=== PATIENT | male | born 1945 | race Caucasian/White ===

== ENCOUNTER 2021-10-03 14:29 | Emergency (ER) | payer MEDICARE, SELFPAY ==
[2021-10-03] VITALS (34 sets, daily range): BP systolic 127–182; BP diastolic 62–108; PULSE 72–108; RESP 11–25; TEMP 37–37.2; O2SAT 94–100
--- NOTE | ~2021-10-03 | CT_ITS ---
EXAMINATION: CT abdomen pelvis wo con DATE: 10/03/2021 20:32 INDICATION: Fever, lactic acidosis, history of hepatic and gallbladder malignancy. TECHNIQUE: Computed tomography (CT) of the abdomen and pelvis was performed without intravenous contr ast. The dose-length product (DLP) was 838.11 mGy-cm. Automated exposure control and iterative recons truction technique were employed. COMPARISON: None FINDINGS: Minimal dependent atelectasis is present in the lung bases. The heart size is normal. A sto ne is present in the nondistended gallbladder. There is branching hyperattenuating material in the ri ght hepatic lobe. There is a biliary stent in the common bile duct extending into the left hepatic lo be. There is a possible low-attenuation mass of the right hepatic lobe abutting the gallbladder fossa . The spleen, pancreas, and adrenal glands are normal. There is a 2.1 cm soft tissue mass projecting at the caudal tip of the spleen, possibly a splenule. There is a 2 cm cyst of the right kidney. There is a 5.0 x 4.3 cm soft tissue density mass of the right retroperitoneum abutting or arising from the right kidney. There is a 1.6 cm exophytic lesion of the left kidney lower pole. The urinary bladder is moderately dilated. Streak artifact from hip arthroplasties obscures visualization of the pelvis. A bowel surgical anastomosis is noted in the right lower quadrant. There is severe lumbar spondylosis . There is calcified atherosclerosis of the aorta and many of the other arteries. IMPRESSION: 1. No definite cause of fever or lactic acidosis identified. 2. Right retroperitoneal mass abutting or arising from the right kidney, consistent with metastatic d isease or renal neoplasm, respectively. 3. Branching hyperattenuating material of the right hepatic lobe, possibly retained biliary contrast due to central hepatic tumor. 4. Indeterminate exophytic lesion of the left kidney lower pole, consistent with complicated cyst itzel pauline neoplasm. 5. Cholelithiasis. 6. Distention of the urinary bladder. Reviewed, dictated and finalized at location F. IMPRESSION: 1. No definite cause of fever or lactic acidosis identified. 2. Right retroperitoneal mass abutting or arising from the right kidney, consis tent with metastatic disease or renal neoplasm, respectively. 3. Branching hyperattenuating material of the right hepatic lobe, possibly sagar ined biliary contrast due to central hepatic tumor. 4. Indeterminate exophytic lesion of the left kidney lower pole, consistent wit h complicated cyst versus neoplasm. 5. Cholelithiasis. 6. Distention of the urinary bladder.
--- NOTE | ~2021-10-03 | XR_ITS ---
EXAMINATION: XR chest 1V portable INDICATION: Fever TECHNIQUE: Portable AP chest at 1729 hours COMPARISON: 11/04/2017 FINDINGS: The lungs are free of acute opacities. There is no pleural effusion or pneumothorax. A righ t internal jugular Port-A-Cath ends with its tip in the distal superior vena cava. The cardiomediasti nal silhouette is normal. There is branching hyperdense material in the right upper quadrant. IMPRESSION: 1. No acute cardiopulmonary abnormality. 2. Branching hyperattenuating material in the right upper quadrant may reflect contrast in the biliar y tree from prior intervention. Reviewed, dictated and finalized at location F. IMPRESSION: 1. No acute cardiopulmonary abnormality. 2. Branching hyperattenuating material in the right upper quadrant may reflect contrast in the biliary tree from prior intervention.
--- NOTE | 2021-10-03 17:16 | ED.FEVER ---
HPI - Fever General Chief Complaint: Fever <JUANPABLO Orozco Last Filed: 10/05/21 17:07> Stated Complaint: fever <JUANPABLO Orozco Last Filed: 10/05/21 17:07> Time Seen by Provider: 10/03/21 17:00 <JUANPABLO Orozco Last Filed: 10/05/21 17:07> Source: patient and family <JUANPABLO Orozco Last Filed: 10/05/21 17:07> Mode of arrival: ambulatory <JUANPABLO Orozco Last Filed: 10/05/21 17:07> Limitations: no limitations <JUANPABLO Orozco Last Filed: 10/05/21 17:07> History of Present Illness HPI Narrative: This is a 76-year-old male that presents to the emergency department for fever and chills. Reports earlier today he started to feel chills, they took his temperature and it was 100.3. This resolved without any intervention. He has no other localizing symptoms. He is currently undergoing chemotherapy for history of liver and gallbladder cancer at [facility] with Dr. Caballero. He called his oncologist who prompted him to be seen for further evaluation of his fever. Reports generalized weakness, which has been ongoing since he has been undergoing chemotherapy. Denies sore throat, cough, abdominal pain, vomiting, or dysuria. <Gege Ontiveros PA-C - Last Filed: 10/05/21 17:07> Related Data Home Medications: Home Medications Medication Instructions Recorded Confirmed amlodipine 10 mg tablet 1 tablet 10/03/21 atorvastatin 40 mg tablet tablet 10/03/21 doxazosin 4 mg tablet tablet 10/03/21 febuxostat 80 mg tablet tablet 10/03/21 losartan 100 mg tablet tablet 10/03/21 metoprolol succinate 100 mg tablet PO 10/03/21 tablet,extended release 24 hr sertraline 50 mg tablet 50 tablet PO HS 10/03/21 <JUANPABLO Orozco Last Filed: 10/05/21 17:07> Allergies/Adverse Reactions: Allergies Allergy/AdvReac Type Severity Reaction Status Date / Time allopurinol Allergy Unknown Sweating Verified 11/04/17 17:56 azithromycin Allergy Unknown Rash Verified 11/04/17 17:56 Penicillins Allergy Unknown Rash Verified 11/04/17 17:56 <Gege Ontiveros PA-C - Last Filed: 10/05/21 17:07> Review of Systems Review of Systems: CONSTITUTIONAL: Reports fever, chills CARDIOVASCULAR: Denies chest pain, or edema. RESPIRATORY: Denies cough GASTROINTESTINAL: Denies abdominal pain, nausea, vomiting GENITOURINARY: Denies dysuria NEUROLOGIC: Reports generalized weakness. <Gege Ontiveros PA-C - Last Filed: 10/05/21 17:07> All systems reviewed & are unremarkable except as noted in HPI and below <Gege Ontiveros PA-C - Last Filed: 10/05/21 17:07> [facility] Past Medical History Medical History: Medical History (Updated 10/04/21 @ 00:57 by Gege Ontiveros PA-C) History of coronary artery disease History of hyperlipidemia History of hypertension <Gege Ontiveros PA-C - Last Filed: 10/05/21 17:07> Surgical History Surgical History: Surgical History (Updated 10/03/21 @ 17:19 by Gege Ontiveros PA-C) History of appendectomy History of hernia repair <Gege Ontiveros PA-C - Last Filed: 10/05/21 17:07> Social History Social History: Social History (Updated 10/03/21 @ 17:19 by Gege Ontiveros PA-C) Smoking status: Never smoker <Gege Ontiveros PA-C - Last Filed: 10/05/21 17:07> Exam Narrative: GENERAL: Chronically ill-appearing, well-nourished, and in no acute distress. HEAD: Normocephalic, atraumatic. EYES: EOMI. ENT: Nares clear, no rhinorrhea or epistaxis. Mucous membranes dry. Oropharynx without tonsillar hypertrophy exudate or other lesions. Bilateral TMs pearly duff non-bulging NECK: Supple. No adenopathy or masses. CHEST: Clear to auscultation. No respiratory distress. No wheezes rales or rhonchi HEART: Regular rate and rhythm. No murmur heard. Normal peripheral pulses. ABDOMEN: Soft, nontender, nondistended, normal active bowel sounds. EXTREMITIES: Normal range of motion. No edema. SKIN: Warm,
[2021-10-03 17:44] LABS: Basophils Percent Auto 0.4 % (0.2-1.2); Hematocrit 30.3 % (42.0-52.0); Hemoglobin 10.1 g/dL (14.0-18.0); Immature Granulocyte Absolute 0.13 K/mm3 (0.00-0.031); Immature Granulocyte Percent A 1.3 % (0-0.5); Immature Platelet Fraction Pct 15.2 % (0.9-11.2); Lymphocytes Absolute Auto 0.27 K/mm3 (0.9-3.2); Lymphocytes Percent Auto 2.7 % (18.3-44.2); Mean Corpuscular HGB Conc 33.3 g/dl (32-36); Mean Corpuscular Hemoglobin 31.2 pg (26-34); Mean Corpuscular Volume 93.5 fl (80-100); Mean Platelet Volume 13.5 fl (7.4-10.4); Monocytes Absolute Auto 0.7 K/mm3 (0.1-0.6); Monocytes Percent Auto 7.3 % (2.6-8.5); Neutrophils Percent Auto 88.3 % (45.5-73.1); Platelet Count Result 36 k/mm3 (150-375); Red Blood Count 3.24 M/mm3 (4.6-6.20); Red Cell Distribution Width 18.6 % (11.5-14.5); White Blood Count 10.1 K/mm3 (4.5-10.0)
[2021-10-03 17:51] LABS: Lactic Acid Reflex 3.2 mmol/L (0.7-2.0)
[2021-10-03 17:57] LABS: INR 1.4; Prothrombin Time 16.9 Seconds (11.1-14.7)
[2021-10-03 17:58] LABS: Partial Thromboplastin Time 40.4 SECONDS (22.3-36.8)
[2021-10-03 18:00] LABS: Alanine Aminotransferase 26 U/L (6-50); Albumin Level 3.8 g/dL (3.5-5.1); Alkaline Phosphatase 183 U/L (38-126); Anion Gap 11 mmol/L (8-16); Aspartate Amino Transferase 25 U/L (17-59); Bilirubin,Total 1.6 mg/dL (0.2-1.3); Blood Urea Nitrogen 25 mg/dL (9-20); Calcium 8.6 mg/dL (8.4-10.2); Carbon Dioxide 20 mmol/L (22-30); Chloride 103 mmol/L (98-107); Estimated CRCL calculation 50 ml/min; Estimated Glomerular Filt Rate 59; Glucose 118 mg/dL (65-110); Lipase 36 U/L (23-300); Potassium 3.7 mmol/L (3.4-5.0); Sodium 134 mmol/L (137-145)
[2021-10-03 18:12] LABS: Platelet Estimate Decreased (Adequate)
[2021-10-03 18:13] LABS: Ovalocytes 1+ (NORMAL)
[2021-10-03 18:19] LABS: Influenza A QL RT-PCR Negative (Negative); Influenza B QL RT-PCR Negative (Negative); SARS-CoV-2 RNA PCR Negative
[2021-10-03] MEDS: SODIUM CHLORIDE 0.9% IV 500 ML 999 ML IV CONT ×2 (18:20→18:56)
[2021-10-03 18:44] LABS: Appearance Urine Clear (Clear); Bilirubin Urine 1+ (Negative); Blood Urine Trace-lysed (Negative); Color Urine Yellow (Yellow); Glucose Urine UA Negative (Negative); Ketones Urine Negative (Negative); Leukocyte Esterase Ur Negative LEU/UL (Negative); Nitrate Urine Negative (Negative); Protein Urine 1+ mg/dL (Negative); Urobilinogen Urine 0.2 mg/dL (<2.0); pH Urine 5.5 (5.0-9.0)
[2021-10-03 19:14] LABS: Bacteria Urine Trace /hpf; Mucus Urine Few /lpf; Squamous Epithelial Cell Urine Rare /hpf (Few); WBC Urine 0-3 /hpf
[2021-10-03 19:24] LABS: Add Urine Microscopic? YES
[2021-10-03 20:40] LABS: Reflex Lactic Acid Yes or No Add Lactic
[2021-10-03 21:23] LABS: Lactic Acid 1.7 mmol/L (0.7-2.0)
[2021-10-03] MEDS: metroNIDAZOLE 500 MG/ISO 100ML 500 MG/100 ML BAG 100 MG IVPB (22:17)
[2021-10-04] VITALS (102 sets, daily range): BP systolic 126–163; BP diastolic 45–98; PULSE 69–81; RESP 16–18; O2SAT 89–98
[2021-10-04] MEDS: SERTRALINE HCL 50 MG TABLET PO (00:23)
[2021-10-04] MEDS: DOXAZOSIN MESYLATE 4 MG TABLET PO (00:23)
[2021-10-04] MEDS: metroNIDAZOLE 500 MG/ISO 100ML 500 MG/100 ML BAG 100 MG IVPB ×4 (04:18→22:46)
[2021-10-04] MEDS: PANTOPRAZOLE 40 MG TABLET PO (09:21)
[2021-10-04] MEDS: amLODIPine BESYLATE 5 MG TABLET 10 MG PO (09:21)
[2021-10-04] MEDS: METOPROLOL SUCCINATE EXT REL 100 MG TABCR PO (09:50)
[2021-10-04] MEDS: LOSARTAN POTASSIUM 100 MG TABLET PO (09:50)
[2021-10-04] MEDS: ATORVASTATIN 40 MG TABLET PO (09:50)
--- NOTE | 2021-10-04 10:37 | PC.NURSE ---
[facility] called and states there are still no beds available at this time. pt still on waiting list.
--- NOTE | 2021-10-04 20:45 | PC.NURSE ---
[facility] access line called for update. Provided with clinical update and VS. All questions addressed, no ETA for a bed.
[2021-10-04] MEDS: DOXAZOSIN MESYLATE 2 MG TABLET PO (22:45)
[2021-10-04] MEDS: SERTRALINE HCL 25 MG TABLET PO (22:45)
--- NOTE | 2021-10-04 22:50 | PC.NURSE ---
PT made aware we do not care febuxostat per pharmacy. Pt called to have her bring his medications in to send to pharmacy for verification.
--- NOTE | 2021-10-04 23:17 | PC.NURSE ---
Pt made contact with his Oncologist. Oncologist advised ok for Pt to eat now. Nothing after midnight.
--- NOTE | 2021-10-04 23:18 | PC.NURSE ---
Pt given Lunch Box with apple juice.
[2021-10-05] VITALS (13 sets, daily range): BP systolic 118–173; BP diastolic 60–77; PULSE 50–80; RESP 16–18; TEMP 36.4–37.4; O2SAT 92–98
--- NOTE | 2021-10-05 00:29 | PHAR ---
FEBUXOSTAT 80 MG TABLET. TAKE 1 TABLET BY MOUTH EVERY DAY AT BEDTIME. VERIFIED IN PHARMACY AND SENT BACK TO ER FOR HOLD-PATIENT.
[2021-10-05] MEDS: FEBUXOSTAT 80 MG TABLET 1 EACH XX (02:07)
[2021-10-05] MEDS: metroNIDAZOLE 500 MG/ISO 100ML 500 MG/100 ML BAG 100 MG IVPB ×3 (04:13→16:19)
[2021-10-05 07:27] LABS: Basophils Percent Auto 0.4 % (0.2-1.2); Hematocrit 29.6 % (42.0-52.0); Hemoglobin 9.7 g/dL (14.0-18.0); Immature Granulocyte Absolute 0.03 K/mm3 (0.00-0.031); Immature Granulocyte Percent A 0.6 % (0-0.5); Immature Platelet Fraction Pct 12.3 % (0.9-11.2); Lymphocytes Absolute Auto 0.35 K/mm3 (0.9-3.2); Lymphocytes Percent Auto 7.2 % (18.3-44.2); Mean Corpuscular HGB Conc 32.8 g/dl (32-36); Mean Corpuscular Hemoglobin 30.5 pg (26-34); Mean Corpuscular Volume 93.1 fl (80-100); Mean Platelet Volume 12.3 fl (7.4-10.4); Monocytes Absolute Auto 0.4 K/mm3 (0.1-0.6); Monocytes Percent Auto 7.4 % (2.6-8.5); Neutrophils Absolute Auto 4.1 K/mm3 (1.3-6.7); Neutrophils Percent Auto 84.4 % (45.5-73.1); Platelet Count Result 68 k/mm3 (150-375); Red Blood Count 3.18 M/mm3 (4.6-6.20); Red Cell Distribution Width 18.5 % (11.5-14.5); White Blood Count 4.9 K/mm3 (4.5-10.0)
[2021-10-05 07:36] LABS: Alanine Aminotransferase 33 U/L (6-50); Albumin Level 3.3 g/dL (3.5-5.1); Alkaline Phosphatase 230 U/L (38-126); Anion Gap 5 mmol/L (8-16); Aspartate Amino Transferase 71 U/L (17-59); Bilirubin,Total 1.5 mg/dL (0.2-1.3); Blood Urea Nitrogen 25 mg/dL (9-20); Calcium 8.4 mg/dL (8.4-10.2); Carbon Dioxide 24 mmol/L (22-30); Chloride 106 mmol/L (98-107); Estimated CRCL calculation 54 ml/min; Estimated Glomerular Filt Rate > 60; Glucose 101 mg/dL (65-110); Lipase 28 U/L (23-300); Potassium 3.5 mmol/L (3.4-5.0); Sodium 135 mmol/L (137-145)
[2021-10-05] MEDS: PANTOPRAZOLE 40 MG TABLET PO (09:09)
[2021-10-05] MEDS: amLODIPine BESYLATE 5 MG TABLET 10 MG PO (09:09)
[2021-10-05] MEDS: LOSARTAN POTASSIUM 100 MG TABLET PO (09:29)
[2021-10-05] MEDS: ATORVASTATIN 40 MG TABLET PO (09:30)
[2021-10-05] MEDS: METOPROLOL SUCCINATE EXT REL 100 MG TABCR PO (09:30)
--- NOTE | 2021-10-05 16:50 | PC.NURSE ---
Bed assigned at [facility] [id number] [facility]
== END 2021-10-05 19:24 ==
PROVIDERS: Physician Assistant; Emergency Provider Emergency Medicine
DX: R50.9 Fever, unspecified (principal); E80.6 Other disorders of bilirubin metabolism; E87.2 Acidosis; C22.1 Intrahepatic bile duct carcinoma; Z20.822 Contact with and (suspected) exposure to COVID-19; I25.10 Atherosclerotic heart disease of native coronary artery without angina pectoris; E78.5 Hyperlipidemia, unspecified; I10 Essential (primary) hypertension; N28.9 Disorder of kidney and ureter, unspecified; K80.20 Calculus of gallbladder without cholecystitis without obstruction; R93.41 Abnormal radiologic findings on diagnostic imaging of renal pelvis, ureter, or bladder; R93.2 Abnormal findings on diagnostic imaging of liver and biliary tract; K66.9 Disorder of peritoneum, unspecified; Z79.899 Other long term (current) drug therapy
CPT/HCPCS: 36415; 71045; 74176; 80053; 81001; 83605; 83690; 85025; 85055; 85610; 85730; 86140; 87040; 87502; 96361; 96365; 96366; 96367; 99285; A9270; C9803; J1956; J7040; U0003; U0005